=== PATIENT | female | born 1970 ===

== ENCOUNTER 2022-07-19 21:56 | Emergency (ER) | payer BC, SELFPAY ==
[2022-07-19 21:59] VITALS: BP 161/100; PULSE 107; RESP 22; TEMP 36.4; O2SAT 100
--- NOTE | 2022-07-19 22:00 | DI.RAD_ITS ---
Exam(s) XR HAND LT COMPLETE EXAM: XR HAND LT COMPLETE CLINICAL HISTORY: dog bite mid hand. TECHNIQUE: 2D digital imaging was performed. COMPARISON: No exams were available for comparison FINDINGS: 3 views There is prominent soft tissue swelling over the dorsal aspect of the hand as well as in the soft tis sues between the 1st and 2nd metacarpals. There is a small osteophytic density measuring 2 x 2 millimeters adjacent to the medial base of the t humb metacarpal, possibly significant. This is bone density. There is no other radiopaque foreign b kulwinder. More proximally adjacent to the scaphoid bone is osteophytic density interposed between the scaphoid and the radial styloid. This may represent a bone fragment off of the radial styloid or scaphoid at this level. Scapholunate distance is normal. No distinct fracture lines are seen in the carpal row bones. IMPRESSION: Findings at 2 levels as described above, possibly significant. DATA REPOSITORY: RADIATION DOSE DELIVERED:
[2022-07-19] MEDS: Lidocaine 1% Multi-Dose 50 ML VIAL (22:17)
--- NOTE | 2022-07-19 22:17 | W.ED.GENAD ---
Discharge Plan Disposition Patient Disposition: Home Condition: Good Discharge Details Clinical Impression: Laceration of hand, left, Dog bite of left hand Primary Care Provider: Niru,Local ED Provider: Jayson Shaffer Home Meds and New Rx's Prescriptions: New amoxicillin-pot clavulanate 875-125 mg tablet 1 tab PO BID 7 Days Qty: 14 0RF Discharge Instructions Instructions: Animal Bite (ED), Laceration (ED) Additional Instructions: You have received 8 sutures for the dog bite. Please keep the area clean and dry. Monitor closely for any redness, drainage or discharge. For Nonabsorbable sutures, please return in 7 to 10 days to have the wound reassessed and the sutures removed. If you come back to the emergency department here it will be free of charge for the suture removal. For long-term scar cosmesis, please make sure to avoid any sun to the area for the next year. Apply moisturizer or vitamin E to the area twice daily for the next 12 months for the best chance of wound/scar medication. Please take a daily multivitamin as well as this can help in wound healing. Because this was a bite from a dog there is a high risk of infection. Please take the antibiotic as directed. Return immediately if you notice any redness swelling or drainage. If you notice any worsening of your symptoms, or any new symptoms such as vomiting, diarrhea, fever, chills, shortness of breath, chest pain, numbness, weakness, or fainting , please return immediately to the emergency department for reevaluation. Please follow up with your primary care provider as soon as possible for reassessment and reevaluation. As always, it was a pleasure participating in your medical care today. Medical Decision Making This is a 51-year-old female with a past medical history of hypertension who is left-hand dominant who presents today for a dog bite of her left hand. Animal was not related to the patient, unknown on the vaccine status for the animal. Patient was bit on her left hand and scratched on her anterior abdomen. She denies any other trauma. She immediately came into the ER for further assessment. She denies any numbness or tingling. She denies any other complaints at this time. No other trauma. She is uncertain as to when her last tetanus was. Left hand demonstrates a 7 centimeter laceration extending from the base of the index finger towards the thenar eminence. No evidence of bony structure involvement. No active hemorrhage. There is a second small puncture wound around the thenar eminence. Notable swelling and bruising on the dorsal aspect of the hand, with tenderness over the first MCP region. Neurovascular exam demonstrates intact sensation throughout the hand and fingers, brisk capillary refill. Patient demonstrates excellent issue clerk strength and movement in general. No evidence of significant dysfunction. We we will update the patient's tetanus, start her on Augmentin. We will evaluate for potential for rabies. We will get an x-ray to evaluate for fracture and suture the area. 10:52 PM The 7 cm laceration was sutured with 7 simple interrupted sutures. The punctate lesion was sutured with a single simple interrupted suture. Patient tolerated this well. X-ray shows no evidence of major fracture. I did speak with the radiologist, she did notice one area near the scaphoid, however patient has no tenderness there whatsoever. Symptoms inconsistent with foreign body or fracture. There is a second location with a 1.5 mm rounded radiodensity at the carpometacarpal joint and there is a questionable component there. Radiology believes that this was a normal bony process, and on reassessment there appears to be no focal tenderness there. However out of an abundance of precaution we have started the patient on Augmentin. We did have a long discussion with the patient regarding rabies, and vaccination status of the dog. Patient does not know the vaccine status of the dog. We discussed risks and benefits of rabies vaccination here, that this time through shared decision-making process, patient has requested to hold off on rabies vaccine, and follow-up with family and friends who are aware of the dog and the dog's vaccination status. We did inform the patient that she can return at any time for her rabies vaccine here if she changes her mind over the next 24 to 48 hours. Otherwise patient appears notably clinically stable. Patient is requesting discharge and would like to follow-up outpatient in [place] when she gets home tomorrow. Discussed red flags for which to return. I have extensively reviewed the treatment plan and discharge instructions with the patient and their family. I have addressed all patient concerns at this time. The patient and family was made aware of what symptoms to monitor for that would warrant a return to the emergency department. Discussed the plan with the patient and family, they demonstrate verbal understanding and agreement with our assessment and plan at this time. The documentation in this chart was dictated using [employer] dictation software. Please excuse any dictation errors. FINDINGS: Bones/joints: Series 2, image 1 demonstrates an ossific density adjacent to the scaphoid, radially, which could represent an os but should be correlated with any concern for bony fragment or foreign body. Soft tissues: Series 3 demonstrates a 1.5 mm rounded radiodensity at the carpometacarpal joint. Per the ordering physician, this was an area of concern for foreign body. This could represent a small os. Foreign body is not entirely excluded. If indicated, CT scan could be considered for further evaluation. Series 3, image 1 demonstrates a 1.4 mm punctate radiodensity in the soft tissues dorsal to the 5th metacarpal shaft. This could represent a soft tissue defect but should be correlated with concern for subtle foreign body. IMPRESSION: 1. Series 3 demonstrates a 1.5 mm rounded radiodensity at the carpometacarpal joint. Per the ordering physician, this was an area of concern for foreign body. This could represent a small os. Foreign body is not entirely excluded. If indicated, CT scan could be considered for further evaluation 2. Area near the scaphoid for which foreign body or bony fragment is not excluded. Area near the 5th metacarpal shaft which could represent a soft tissue defect but should be correlated with concern for foreign body. Other findings/details as above. THIS REPORT CONTAINS FINDINGS THAT MAY BE CRITICAL TO PATIENT CARE. The findings were verbally communicated via telephone conference with JAYSON SHAFFER at 11:32 PM EDT on 07/19/2022. The findings were acknowledged and understood. HPI General Date/Time Provider Initiated Documentation: 07/19/22 22:08. HPI Narrative: This is a 51-year-old female with a past medical history of hypertension who is left-hand dominant who presents today for a dog bite of her left hand. Animal was not related to the patient, unknown on the vaccine status for the animal. Patient was bit on her left hand and scratched on her anterior abdomen. She denies any other trauma. She immediately came into the ER for further assessment. She denies any numbness or tingling. She denies any other complaints at this time. No other trauma. She is uncertain as to when her last tetanus was. Related Data Home Medications Medication Instructions Recorded Confirmed amoxicillin 875 mg-potassium 1 tab PO BID 7 days #14 tabs 07/19/22 clavulanate 125 mg tablet Previous Rx's Medication Instructions Recorded amoxicillin 875 mg-potassium 1 tab PO BID 7 days #14 tabs 07/19/22 clavulanate 125 mg tablet General Stated Complaint: AnimalBite JUAN: 3 Review of Systems All systems reviewed & are unremarkable except as noted in HPI and below PFSH All Active Problems (Updated 07/19/22 @ 22:54 by Jayson Shaffer DO) Laceration of hand, left (Acute) Dog bite of left hand (Acute) Social History Smoking/Tobacco Use Status: Current-Occasional Tobacco Type: cigarettes Smoking risk assessment performed?: Yes Alcohol Intake: current Alcohol Intake frequency: holidays/special occasions only Alcohol type: beer, wine and hard liquor Drug use: Rarely Substance use type: marijuana Do you feel safe at home: Yes Do you feel safe in your relationship?: Yes Exam Narrative Exam Narrative: 1.Const: Well-nourished, Well-developed, appearing stated age 2.Eyes: PERRL, no conjunctival injection, and symmetrical lids. 3.ENT: Atraumatic external nose and ears. Moist MM. Neck: Symmetric, trachea midline, No thyromegaly. 4.CVS: +S1/S2, No murmurs or gallops. Peripheral pulses 2+ and equal in all extremities. Brisk capillary refill in all extremities. 5.RESP: Unlabored respiratory effort. Clear to auscultation bilaterally. No wheezes rales or rhonchi 6.GI: Soft, Nontender/Nondistended, No hepatosplenomegaly. No guarding or rebound. 7.MSK: Left hand demonstrates a 7 centimeter laceration extending from the base of the index finger towards the thenar eminence. No evidence of bony structure involvement. No active hemorrhage. There is a second small puncture wound around the thenar eminence. Notable swelling and bruising on the dorsal aspect of the hand, with tenderness over the first MCP region. No laceration in this area. Symmetrically palpable radial and ulnar pulses. Capillary refill less than 2 seconds to all digits. Intact sensation to light touch of the radial, median and ulnar nerves demonstrated by testing in the dorsal web space of the thumb, the distal palmar aspect of the index finger, and the lateral surface of the fifth finger. 2 point discrimination intact to 5mm (up to 6mm can be normal in digits 3-5) of discrimination in the affected digit. Intact motor function of the radial, median and ulnar nerves demonstrated by strength of extension of the isolated distal joint of the index finger, hand issue clerk, and spreading of the 2nd through 5th digits. Intact recurrent median nerve as demonstrated by ability to move thumb fully through opposition, abduction and flexion. No snuffbox tenderness. 8.Skin: Please see musculoskeletal 9.Neuro: watch and clock repair clerk II-XII grossly intact. Sensation grossly intact, no focal neurologic deficits. 10.Psych: (AAO) x3. Appropriate mood and affect Course Vital Signs Vital signs: Vital Signs Temperature 36.4 C L 07/19/22 21:59 Pulse 107 H 07/19/22 21:59 Respiratory Rate 22 07/19/22 21:59 Blood Pressure 161/100 H 07/19/22 21:59 Pulse Oximetry 100 07/19/22 21:59 Temperature 36.4 C L 07/19/22 21:59 Temperature Source Oral 07/19/22 21:59 Pulse 107 H 07/19/22 21:59 Respiratory Rate 22 07/19/22 21:59 Respiratory Effort Normal, Non-Labored 07/19/22 22:05 Blood Pressure 161/100 H 07/19/22 21:59 Blood Pressure Position Sitting 07/19/22 21:59 Pulse Oximetry 100 07/19/22 21:59 Oxygen Delivery Method Room Air 07/19/22 21:59 Oxygen Flow Rate 0 07/19/22 21:59 Pain Level 10 07/19/22 21:59 Procedures Laceration Laceration 1: Site: hand Side (If applicable): left Size (cm): 7 Description: linear Depth: simple, single layer Local Anesthetic: Lidocaine 1% Amount of anesthesia used (mL): 5 Pre-repair: wound explored, irrigated extensively and deep structures intact Skin layer closed with: nylon Size (cm): 4-0 Number of sutures: 7 Technique: simple, interrupted Laceration 2: Site: hand Side (If applicable): left Size (cm): 0.5 Description: linear Depth: simple, single layer Local Anesthetic: Lidocaine 1% Amount of anesthesia used (mL): 2 Pre-repair: wound explored, irrigated extensively and deep structures intact Skin layer closed with: nylon Size (cm): 4-0 Number of sutures: 1 Technique: simple, interrupted
[2022-07-19] MEDS: Ibuprofen 800 MG TAB PO (23:00)
[2022-07-19] MEDS: Amoxicillin 875/Clav. 125 TAB PO (23:00)
[2022-07-19] MEDS: Acetaminophen 500 MG TAB 1000 MG PO (23:00)
[2022-07-19] MEDS: Amox. 875/Clav. 125, 2 TABS/BTL 1 TAB PO (23:03)
--- NOTE | 2022-07-19 23:33 | DI.VRAD_ITS ---
PROCEDURE INFORMATION: Exam: XR Left Hand Exam date and time: 07/19/2022 10:23 PM Age: 51 years old Clinical indication: Injury or trauma; Other: Dog bite; Hand; Left TECHNIQUE: Imaging protocol: Radiologic exam of the left hand. Views: 3 or more views. COMPARISON: No relevant prior studies available. FINDINGS: Bones/joints: Series 2, image 1 demonstrates an ossific density adjacent to the scaphoid, radially, which could represent an os but should be correlated with any concern for bony fragment or foreign body. Soft tissues: Series 3 demonstrates a 1.5 mm rounded radiodensity at the carpometacarpal joint. Per the ordering physician, this was an area of concern for foreign body. This could represent a small os. Foreign body is not entirely excluded. If indicated, CT scan could be considered for further evaluation. Series 3, image 1 demonstrates a 1.4 mm punctate radiodensity in the soft tissues dorsal to the 5th metacarpal shaft. This could represent a soft tissue defect but should be correlated with concern for subtle foreign body. IMPRESSION: 1. Series 3 demonstrates a 1.5 mm rounded radiodensity at the carpometacarpal joint. Per the ordering physician, this was an area of concern for foreign body. This could represent a small os. Foreign body is not entirely excluded. If indicated, CT scan could be considered for further evaluation. 2. Area near the scaphoid for which foreign body or bony fragment is not excluded. Area near the 5th metacarpal shaft which could represent a soft tissue defect but should be correlated with concern for foreign body. Other findings/details as above. THIS REPORT CONTAINS FINDINGS THAT MAY BE CRITICAL TO PATIENT CARE. The findings were verbally communicated via telephone conference with JAYSON SHAFFER at 11:32 PM EDT on 07/19/2022. The findings were acknowledged and understood. Dictated and Authenticated by: Lyly Lemons MD. Ordering:ZHANG Hess MD
--- NOTE | 2022-07-20 09:10 | NUR.NOTE ---
Spoke to Health Officer Andrew Camacho, faxed report.Nursing Note:
== END 2022-07-19 23:34 | disposition home or self-care (01) ==
LOC: ER 07-20 01:29
PROVIDERS: Emergency Provider Student in an Organized Health Care Education/Training Program
DX: S61.412A Laceration without foreign body of left hand, initial encounter (principal); W54.0XXA Bitten by dog, initial encounter
CPT/HCPCS: 12002; 90471; 99284; 73130